=== PATIENT | female | born 1955 | race Two or more races ===

== ENCOUNTER → 2023-09-26 | Emergency (ER) | payer OTHER ==
[~2023-09-26] VITALS: Ht 157.5 cm; Wt 63.5 kg
[~2023-09-26] MED LIST: FOLIC ACID0.4 MG PO; FOSAMAX70 MG/75 M PO; MEDROL8 MG PO; NEURONTIN800 MG PO
[2023-09-26 15:08] LABS: ABG PH 7.337 (7.35-7.45)
[2023-09-26 15:09] LABS: ABG PO2 65.9 mmHg (80-100); ABG pCO2 73.4 mmHg (35-45); BASE EXCESS 9.3 mmol/l; BICARBONATE 38.4 mmol/l (23-25); SaO2 91.8 %; Tco2 40.7 mmol/l; allen test SATISFACTORY; o2 21 %; puncture site RADIAL RIGHT
== END | disposition expired ==
LOC: ER 13:08
PROVIDERS: General Practice
DX: R06.03 Acute respiratory distress (principal); J44.89 Other specified chronic obstructive pulmonary disease; Z88.6 Allergy status to analgesic agent; J18.8 Other pneumonia, unspecified organism